=== PATIENT | female | born 1960 | race Two or more races ===

== ENCOUNTER → 2017-10-14 | Emergency (ER) | payer OTHER ==
[~2017-10-14] VITALS: Ht 157.5 cm; Wt 81.6 kg
[~2017-10-14] MED LIST: ANTIVERT25 MG ORAL; CIPRO500 MG PO; CLINDAMYCIN HC300 MG ORAL; NKM; PHENAZOPYRIDIN200 MG ORAL; Tylenol #3 tab (300mg/30mg) ORAL ONE; ZOFRAN ODT4 MG ORAL
[2017-10-14 15:30] VITALS: BP 151/87
--- NOTE | 2017-10-15 21:33 | Emergency Room Report ---
History of Present Illness General Chief Complaint: Chest Pain Source: Patient, Medical Record Present Illness HPI 57-year-old female presents ED complaining of chest pain started earlier today. Sharp, midsternal, radiating through the left shoulder. 8/10. Denies shortness of breath. Patient denies any history. Denies smoking or drug use. No other reading relieving factors. Denies any other associated symptom Allergies: Coded Allergies: No Known Allergies (Unverified , 07/19/15) Patient History Past Medical History: DM, HTN Past Surgical History: none Pertinent Family History: none Social History: Denies: smoking, alcohol use, drug use Last Menstrual Period: menopause Now: No Immunizations: UTD Reviewed Nursing Documentation: PMH: Agreed, PSxH: Agreed Nursing Documentation-PMH Past Medical History: No History, Except For Hx Hypertension: Yes Hx Asthma: No Hx COPD: No Hx Diabetes: Yes Review of Systems All Other Systems: negative except mentioned in HPI Physical Exam Vital Signs Date Time Temp Pulse Resp B/P (MAP) Pulse Ox O2 Delivery O2 Flow Rate FiO2 10/14/17 15:02 98.8 95 18 166/91 95 Room Air Sp02 EP Interpretation: reviewed, normal General Appearance: no apparent distress, alert, GCS 15, non-toxic Head: normocephalic, atraumatic Eyes: bilateral eye normal inspection, bilateral eye PERRL ENT: hearing grossly normal, normal pharynx, no angioedema, normal voice Neck: full range of motion, supple/symm/no masses Respiratory: lungs clear, normal breath sounds, speaking full sentences, other - reproducible chest wall tenderness Cardiovascular #1: regular rate, rhythm, no edema Cardiovascular #2: 2+ carotid (R), 2+ carotid (L), 2+ radial (R), 2+ radial (L) , 2+ dorsalis pedis (R), 2+ dorsalis pedis (L) Gastrointestinal: normal bowel sounds, non tender, soft, non-distended, no guarding, no rebound Rectal: deferred Genitourinary: normal inspection, no CVA tenderness Musculoskeletal: back normal, gait/station normal, normal range of motion, non- tender Neurologic: alert, oriented x3, responsive, motor strength/tone normal, sensory intact, speech normal Psychiatric: judgement/insight normal, memory normal, mood/affect normal, no suicidal/homicidal ideation Reflexes: 3+ bicep (R), 3+ bicep (L), 3+ tricep (R), 3+ tricep (L), 3+ knee (R) , 3+ knee (L) Skin: normal color, no rash, warm/dry, well hydrated Lymphatic: no adenopathy Medical Decision Making Diagnostic Impression: Primary Impression: Chest pain Qualified Codes: R07.9 - Chest pain, unspecified ER Course Hospital Course 57 yo F presents to ED c/o chest pain. 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 After initial history and physical I recommended to patient that we check bloodwork, EKG, CXR Patient asked how long will this take. I explained that routine laboratory testing will take approximately 90 minutes to hours however the hospital is currently running on back up generator abd laboratories currently down to the so may take longer Patient states she does not want to wait. asking for pain medications and be discharged. I explained to patient she feet she needs to leave AGAINST MEDICAL ADVICE given tylenol #3 in ED. Patient states she wishes to go home. Understands the risks of leaving. Patient has competency to make her own decisions. Signed AMA form. I. I feel this is a highly complex case requiring extensive working including EKG/Rhythm strip, Xray/CT/US, Blood/urine lab work, repeat exams while in ED, and administration of strong opiates/narcotics for pain control, admission to hospital or close patient follow up. Diagnosis - chest pain patient left AMA Last Vital Signs Date Time Temp Pulse Resp B/P (MAP) Pulse Ox O2 Delivery O2 Flow Rate FiO2 10/14/17 15:30 98.8 18 151/87 95 Room Air 10/14/17 15:30 95 Status: unchanged Disposition: AGAINST MEDICAL ADVICE Condition: Stable Referrals: [facility],REFERRING (PCP) MIO BURT M.D. Oct 15, 2017 21:33
--- NOTE | 2017-10-18 19:28 | Cardiology Report ---
APPROVED REPORT EKG Measurement Heart [id number] Normal sinus rhythm Low voltage QRS Cannot rule out Anterior infarct, age undetermined Abnormal ECG
== END | disposition home or self-care (01) ==
LOC: EMR 15:10
DX: R07.9 Chest pain, unspecified (principal); E11.9 Type 2 diabetes mellitus without complications; I10 Essential (primary) hypertension
CPT/HCPCS: 93005; 99282

== ENCOUNTER 2018-03-14 13:53 | Emergency (ER) | payer OTHER ==
[~2018-03-14] VITALS: Ht 157.5 cm; Wt 88.5 kg
[~2018-03-14 13:53] MED LIST changes: -Tylenol #3 tab (300mg/30mg) ORAL ONE
[2018-03-14] MEDS ORDERED: HYDROXYCHLOROQ200 M1 ORAL (14:03)
[2018-03-14] MEDS ORDERED: LEFLUNOMIDE10 MG ORAL (14:03)
[2018-03-14] MEDS ORDERED: BUSPAR10 MG ORAL (14:03)
[2018-03-14] MEDS ORDERED: FOLIC ACID1 M1 ORAL (14:03)
[2018-03-14] MEDS ORDERED: DOCUSATE SODIU100 MG ORAL (14:04)
[2018-03-14] MEDS ORDERED: ATORVASTATIN CA20 MG ORAL (14:04)
[2018-03-14 14:05] VITALS: BP 134/82
[2018-03-14] MEDS ORDERED: Ipratropium 0.02% Inh Soln 2.5ml UD HHN ONE (14:30)
[2018-03-14] MEDS ORDERED: Albuterol ud Inhalation HHN ONE (14:30)
--- NOTE | 2018-03-14 14:46 | Emergency Room Report ---
History of Present Illness General Chief Complaint: General Complaint Source: Patient Present Illness HPI 57-year-old female presents ED for evaluation. Patient states that she is complaining of congestion, stuffy nose and chest tightness 1 day. Denies any chest pain. Notes difficulty with deep breaths. History of asthma as a child. Denies fevers chills. Denies cough. History of lupus. Also going of dysuria 1 day. No flank pain. No nausea or vomiting. No other aggravating relieving factors. Denies any other associated symptoms Allergies: Coded Allergies: No Known Allergies (Unverified , 07/19/15) Patient History Past Medical History: DM, other - lupus Past Surgical History: none Pertinent Family History: none Social History: Denies: smoking, alcohol use, drug use Now: No Immunizations: UTD Reviewed Nursing Documentation: PMH: Agreed; PSxH: Agreed Nursing Documentation-PMH Past Medical History: No History, Except For Hx Hypertension: Yes - Fibromyalgia Hx Asthma: No Hx COPD: No Hx Diabetes: Yes Review of Systems All Other Systems: negative except mentioned in HPI Physical Exam Vital Signs Date Time Temp Pulse Resp B/P (MAP) Pulse Ox O2 Delivery O2 Flow Rate FiO2 03/14/18 13:56 98.2 91 16 129/82 96 Room Air 98.2 Sp02 EP Interpretation: reviewed, normal General Appearance: no apparent distress, alert, GCS 15, non-toxic Head: normocephalic, atraumatic Eyes: bilateral eye normal inspection, bilateral eye PERRL ENT: hearing grossly normal, normal pharynx, no angioedema, normal voice Neck: full range of motion, supple/symm/no masses Respiratory: chest non-tender, decreased breath sounds, speaking full sentences Cardiovascular #1: regular rate, rhythm, no edema, other - reproducible anterior chest wall pain Cardiovascular #2: 2+ carotid (R), 2+ carotid (L), 2+ radial (R), 2+ radial (L) , 2+ dorsalis pedis (R), 2+ dorsalis pedis (L) Gastrointestinal: normal bowel sounds, non tender, soft, non-distended, no guarding, no rebound Rectal: deferred Genitourinary: normal inspection, no CVA tenderness Musculoskeletal: back normal, gait/station normal, normal range of motion, non- tender Neurologic: alert, oriented x3, responsive, motor strength/tone normal, sensory intact, speech normal Psychiatric: judgement/insight normal, memory normal, mood/affect normal, no suicidal/homicidal ideation Reflexes: 3+ bicep (R), 3+ bicep (L), 3+ tricep (R), 3+ tricep (L), 3+ knee (R) , 3+ knee (L) Skin: normal color, no rash, warm/dry, well hydrated Lymphatic: no adenopathy Medical Decision Making Diagnostic Impression: Primary Impression: Bronchitis ER Course Hospital Course 57-year-old female presents to ED complaining of SOB, congestion. Differential diagnoses include: URI, bronchitis, asthma/COPD, pneumonia Clinical course Patient placed on stretcher. After initial history and physical I ordered prednisone and nebulizer treatment. CXR no acute process Upon reassessment patient states symptoms have improved. Findings consistent with bronchitis. patient states she is unable to provide a urine sample. say she does not want to wait Diagnosis - bronchitis Stable and discharged home with prescriptions for Rx prednisone, albuterol. Instructed to followup with PMD. Return to ED if symptoms recur or worsen Chest X-Ray Diagnostic Results Chest X-Ray Diagnostic Results : Chest X-Ray Ordered: Yes # of Views/Limited/Complete: 1 View Indication: Chest Pain EP Interpretation: Yes Interpretation: no consolidation, no effusion, no pneumothorax, no acute cardiopulmonary disease Impression: No acute disease Electronically Signed by: Electronically signed by Nate Barton MD Last Vital Signs Date Time Temp Pulse Resp B/P (MAP) Pulse Ox O2 Delivery O2 Flow Rate FiO2 03/14/18 13:56 98.2 91 16 129/82 96 Room Air 98.2 Status: improved Disposition: HOME, SELF-CARE Condition: Stable Scripts Albuterol Sulfate* (ALBUTEROL SULFATE MDI*) 8.5 Gm Hfa.aer.ad 2 PUFF INH Q6H, #1 EA 0 Refills Prov: Nate Barton MD 03/14/18 Prednisone* (PREDNISONE*) 20 Mg Tablet 60 MG ORAL DAILY, #15 TAB Prov: Nate Barton MD 03/14/18 Referrals: [facility],REFERRING (PCP) Nate Barton MD March 14, 2018 14:46
[2018-03-14] MEDS ORDERED: PREDNISONE20 MG ORAL (15:10)
[2018-03-14] MEDS ORDERED: ALBUTEROL SULF8.5 GM INH (15:10)
[2018-03-14 15:22] VITALS: BP 138/89
[2018-03-14 15:44] LABS: APPEARANCE,URINE CLEAR; BILIRUBIN, URINE NEGATIVE (NEGATIVE); COLOR,URINE PALE YELLOW; GLUCOSE, URINE (UA) NEGATIVE (NEGATIVE); KETONES,URINE NEGATIVE (NEGATIVE); LEUKOCYTE ESTERASE ,URINE 1+ (NEGATIVE); NITRITE,URINE NEGATIVE (NEGATIVE); PH,URINE 5 (4.5-8.0); PROTEIN,URINE NEGATIVE (NEGATIVE); UROBILINOGEN,URINE NORMAL MG/DL (0.0-1.0)
--- NOTE | 2018-03-14 16:04 | Diagnostic Imaging Report ---
Indication: Dyspnea Comparison: None A single view chest radiograph was obtained. Findings: Cardiomediastinal appearance is within normal limits for age. Pulmonary vascularity is appropriate. The diaphragmatic contour is smooth and costophrenic angles are sharp. No pleural effusions are identified. The bones are unremarkable. Impression: No acute findings
== END 2018-03-14 16:16 | disposition home or self-care (01) ==
LOC: EMR 14:20
DX: J40 Bronchitis, not specified as acute or chronic (principal); E11.9 Type 2 diabetes mellitus without complications; I10 Essential (primary) hypertension; M79.7 Fibromyalgia
CPT/HCPCS: 71045; 81003; 94640; 94664; 99284

== ENCOUNTER 2018-05-15 20:12 | Emergency (ER) | payer OTHER ==
[~2018-05-15] VITALS: Ht 157.5 cm; Wt 88.5 kg
[~2018-05-15 20:12] MED LIST changes: +ALBUTEROL SULF8.5 GM INH; +ATORVASTATIN CA20 MG ORAL; +BUSPAR10 MG ORAL; +DOCUSATE SODIU100 MG ORAL; +FOLIC ACID1 M1 ORAL; +HYDROXYCHLOROQ200 M1 ORAL; +LEFLUNOMIDE10 MG ORAL; +PREDNISONE20 MG ORAL
--- NOTE | 2018-05-15 20:38 | Emergency Room Report ---
History of Present Illness General Chief Complaint: Chest Pain Source: Patient Present Illness HPI Patient present with complaints of midsternal chest pain that started few hours ago She reports that she was having an argument with family when the pain came on She has started to feel better at this time Denies any current chest pain Denies any vomiting or diarrhea denies any shortness of breath Patient reports that she thinks she was having anxiety And requesting medication Denies any recent travel denies any dysuria frequency Allergies: Coded Allergies: No Known Allergies (Unverified , 07/19/15) Patient History Past Medical History: see triage record Pertinent Family History: none Last Menstrual Period: n/a Reviewed Nursing Documentation: PMH: Agreed; PSxH: Agreed Nursing Documentation-PMH Past Medical History: No History, Except For Hx Hypertension: Yes - Fibromyalgia Hx Asthma: No Hx COPD: No Hx Diabetes: Yes Review of Systems All Other Systems: negative except mentioned in HPI Physical Exam Vital Signs Date Time Temp Pulse Resp B/P (MAP) Pulse Ox O2 Delivery O2 Flow Rate FiO2 05/15/18 20:15 98.5 99 16 142/88 98 Room Air 98.4 Sp02 EP Interpretation: reviewed, normal General Appearance: well appearing, no apparent distress Head: normocephalic, atraumatic Eyes: bilateral eye PERRL, bilateral eye EOMI ENT: hearing grossly normal, normal pharynx, TMs + canals normal, uvula midline Neck: full range of motion, supple, no meningismus, no bony tend Respiratory: lungs clear, normal breath sounds, no rhonchi, no respiratory distress, no retraction, no accessory muscle use Cardiovascular #1: normal peripheral pulses, regular rate, rhythm, no edema, no gallop, no JVD, no murmur Gastrointestinal: normal bowel sounds, non tender, soft, no mass, no organomegaly, non-distended, no guarding, no hernia, no pulsatile mass, no rebound Genitourinary: no CVA tenderness Musculoskeletal: normal inspection Neurologic: oriented x3, 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, 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, motor strength/ tone normal, sensory intact Psychiatric: mood/affect normal Skin: normal color, no rash, warm/dry, palpation normal Lymphatic: normal inspection, no adenopathy Medical Decision Making Diagnostic Impression: Primary Impression: Chest pain Additional Impression: Palpitations ER Course Patient is a fairly complex patient with multiple differential to consideration including but not limited to cardiac cardiopulmonary and vascular emergencies Patient continues to produce her discomfort specifically to the acute moment of argument and reports that she feels significantly better Patient observed EKG is appropriate and does not show any ST elevation CO As the patient has had full resolution further examination was not performed on blood work and patient stable for close follow-up she will return with any changes or concerns EKG Diagnostic Results Rate: normal Rhythm: NSR ST Segments: no acute changes Rhythm Strip Diag. Results EP Interpretation: yes Rate: 77 Rhythm: NSR, no PVC's, no ectopy Last Vital Signs Date Time Temp Pulse Resp B/P (MAP) Pulse Ox O2 Delivery O2 Flow Rate FiO2 05/15/18 20:15 98.5 99 16 142/88 98 Room Air 98.4 Status: improved Disposition: HOME, SELF-CARE Condition: Improved Additional Instructions: Patient is provided with the discharge instructions notified to follow up with primary doctor in the next 2-3 days otherwise return to the er with any worsening symptoms. Please note that this report is being documented using [employer] technology. This can lead to erroneous entry secondary to incorrect interpretation by the dictating instrument. Catherine Griffin DO May 15, 2018 20:38
[2018-05-15] MEDS ORDERED: ALPRAZolam 0.25mg tab ORAL ONE (20:45)
[2018-05-15 21:00] VITALS: BP 148/76
[2018-05-15 21:06] VITALS: BP 148/76
--- NOTE | 2018-05-16 14:54 | Cardiology Report ---
APPROVED REPORT EKG Measurement Heart [id number] Normal sinus rhythm Normal ECG
== END 2018-05-15 21:06 | disposition home or self-care (01) ==
LOC: EMR 20:54
DX: R07.9 Chest pain, unspecified (principal); R00.2 Palpitations; E11.9 Type 2 diabetes mellitus without complications; I10 Essential (primary) hypertension; M79.7 Fibromyalgia
CPT/HCPCS: 93005; 99283

== ENCOUNTER 2019-01-03 15:40 | Emergency (ER) | payer OTHER ==
[~2019-01-03] VITALS: Ht 157.5 cm; Wt 86.2 kg
[2019-01-03 15:43] VITALS: BP 131/86
--- NOTE | 2019-01-03 17:06 | NUR ---
ED Nurse Note: Patient presents to ER due to persistent, painful cough since last week; reports no CP, dyspnea or SOB. Patient awake, alert, oriented x 4. Regular unlaobred breathing noted. Reports no N/V or diaphoresis. Mask provided. Patient sitting in chair.
--- NOTE | 2019-01-03 17:26 | Emergency Room Report ---
History of Present Illness General Chief Complaint: Upper Respiratory Illness Source: Patient Present Illness HPI 58-year-old female presents emergency department complaining of 6/10 in severity painful persistent cough with mucus production 2 weeks. She is also reporting some pain in the upper back area that is exacerbated with coughing, and relieved when not. Pt. with hx of lupus and fibromyalgia. Denies fevers, chills, recent travel or ill contacts. Denies cardiac hx, or swelling of the LE' s. Denies CP, Palpitations, LOC, AMS, dizziness, Changes in Vision, Sensation, paresthesias, or a sudden severe headache. Allergies: Coded Allergies: No Known Allergies (Unverified , 07/19/15) Patient History Past Medical History: see triage record Past Surgical History: none Pertinent Family History: none Last Menstrual Period: na Now: No Immunizations: UTD Reviewed Nursing Documentation: PMH: Agreed; PSxH: Agreed Nursing Documentation-PMH Past Medical History: No History, Except For Hx Hypertension: Yes - Fibromyalgia Hx Asthma: No Hx COPD: No Hx Diabetes: Yes Review of Systems All Other Systems: negative except mentioned in HPI Physical Exam Vital Signs Date Time Temp Pulse Resp B/P (MAP) Pulse Ox O2 Delivery O2 Flow Rate FiO2 01/03/19 15:43 98.2 96 18 131/86 96 Room Air Sp02 EP Interpretation: reviewed, normal General Appearance: no apparent distress, alert, GCS 15, non-toxic Head: normocephalic, atraumatic Eyes: bilateral eye normal inspection, bilateral eye PERRL ENT: hearing grossly normal, normal voice Neck: full range of motion, no meningismus Respiratory: chest non-tender, lungs clear, normal breath sounds, no respiratory distress, no accessory muscle use, no wheezing, speaking full sentences Cardiovascular #1: regular rate, rhythm, no edema, normal capillary refill Cardiovascular #2: 0 carotid (R), 0 carotid (L), 0 radial (R), 0 radial (L), 0 femoral (R), 0 femoral (L), 0 dorsalis pedis (R), 0 dorsalis pedis (L) Musculoskeletal: back normal, gait/station normal, normal range of motion, non- tender Neurologic: alert, oriented x3, responsive, motor strength/tone normal, sensory intact, speech normal, grossly normal Psychiatric: judgement/insight normal Skin: normal color, no rash, warm/dry, well hydrated Lymphatic: no adenopathy Medical Decision Making PA Attestation Dr. gutierrez is my supervising Physician whom patient management has been discussed with. Diagnostic Impression: Primary Impression: Viral upper respiratory infection ER Course 58-year-old female presents emergency department complaining of 6/10 in severity painful persistent cough with mucus production 2 weeks. She is also reporting some pain in the upper back area that is exacerbated with coughing, and relieved when not. Pt. with hx of lupus and fibromyalgia. Denies fevers, chills, recent travel or ill contacts. Denies cardiac hx, or swelling of the LE' s. Denies CP, Palpitations, LOC, AMS, dizziness, Changes in Vision, Sensation, paresthesias, or a sudden severe headache. Ddx considered but are not limited to URI, pneumonia, PE, strep pharyngitis, meningitis. Vital signs: Pt. is afebrile, the remaining VS are WNL H&PE are most consistent with URI- no meningeal signs, oropharynx is not involved, no evidence of bacterial infection at this time. ORDERS: none required at this time, the diagnosis is clinical ED INTERVENTIONS: None required at this time. --PT. EDUCATION: Discussed antibiotic resistance with inappropriate prescribing of antibiotics for viral illnesses. Discussed signs and symptoms to indicate viral illness versus bacterial illness. DISCHARGE: At this time pt. is stable for d/c to home. Will provide printed patient care instructions, and any necessary prescriptions. Care plan and follow up instructions have been discussed with the patient prior to discharge. EKG Diagnostic Results EP Interpretation: Dr. Barton Rate: normal - 89 bpm Rhythm: NSR ST Segments: no acute changes DELMIS Scribe Text This Interpretation was scribed by DELMIS Hutchinson. Chest X-Ray Diagnostic Results Chest X-Ray Diagnostic Results : Chest X-Ray Ordered: Yes # of Views/Limited/Complete: 1 View Indication: Shortness of Breath EP Interpretation: Yes DELMIS Xray: Interpretation reviewed, by supervising MD, and agrees with findings. Interpretation: no consolidation, no effusion, no pneumothorax, no acute cardiopulmonary disease Impression: No acute disease Electronically Signed by: Fidelina Hutchinson PA-C Last Vital Signs Date Time Temp Pulse Resp B/P (MAP) Pulse Ox O2 Delivery O2 Flow Rate FiO2 01/03/19 17:05 96 18 Room Air 01/03/19 15:43 98.2 131/86 96 Disposition: HOME, SELF-CARE Condition: Stable Scripts Albuterol Sulfate* (ALBUTEROL SULFATE MDI*) 8.5 Gm Hfa.aer.ad 2 PUFF INH Q4H, #1 INH 0 Refills Prov: Fidelina Hutchinson 01/03/19 Cetirizine Hcl/Pseudoephedrine (ZYRTEC-D TABLET) 1 Each Tab.er.12h 1 EACH ORAL Q12HR, #20 TAB Prov: Fidelina Hutchinson 01/03/19 Codeine/Promethazine Hcl* (PROMETHAZINE-CODEINE SYRUP*) 118 Ml Syrup 5 ML ORAL Q6H PRN for For Cough, #120 ML 0 Refills Prov: Fidelina Hutchinson 01/03/19 Referrals: [facility],REFERRING (PCP) Patient Instructions: Upper Respiratory Infection, Adult Additional Instructions: Take medications as directed. Follow up with a Primary Care Provider in 3-5 days, even if your symptoms have resolved. --Please review list of primary care clinics, if you do not already have a primary care provider Return sooner to ED if new symptoms occur, or current symptoms become worse. Do not drink alcohol, drive, or operate heavy machinery while taking Cough Syrup as this may cause drowsiness. - Please note that this Emergency Department Report was dictated using [employer] assistant technology software, occasionally this can lead to erroneous entry secondary to interpretation by the dictation equipment. Fidelina Hutchinson Jan 03, 2019 17:26
[2019-01-03] MEDS ORDERED: ALBUTEROL SULF8.5 GM INH (17:28)
[2019-01-03] MEDS ORDERED: PROMETHAZINE-C118 M1 ORAL (17:28)
[2019-01-03] MEDS ORDERED: ZYRTEC-D TABLE1 EACH ORAL (17:28)
[2019-01-03 17:30] VITALS: BP 121/81
--- NOTE | 2019-01-03 17:30 | NUR ---
ED Nurse Note: Patient cleared to be d/c per ERMD. D/C instruction and prescription provided. Patient education done via discussion and handout, Patient verbalized understanding and agrees with plan. Patient ambulated out steady gait with her belongings. Wristband removed.
--- NOTE | 2019-01-04 12:07 | Diagnostic Imaging Report ---
Indication: Cough for a month Technique: One view of the chest Comparison: 03/14/2018 Findings: Lungs and pleural spaces are clear. Heart size is normal . No significant interim change Impression: No acute process
--- NOTE | 2019-01-05 20:23 | Cardiology Report ---
APPROVED REPORT EKG Measurement Heart [id number] Normal sinus rhythm Low voltage QRS Borderline ECG
== END 2019-01-03 17:30 | disposition home or self-care (01) ==
LOC: EMR 16:20
DX: J06.9 Acute upper respiratory infection, unspecified (principal); B34.9 Viral infection, unspecified; I10 Essential (primary) hypertension; E11.9 Type 2 diabetes mellitus without complications; M79.7 Fibromyalgia
CPT/HCPCS: 71045; 93005; 99283

== ENCOUNTER 2019-03-18 17:36 | Emergency (ER) | payer OTHER ==
[~2019-03-18] VITALS: Ht 157.5 cm; Wt 86.2 kg
[~2019-03-18 17:36] MED LIST changes: +PROMETHAZINE-C118 M1 ORAL; +ZYRTEC-D TABLE1 EACH ORAL
--- NOTE | 2019-03-18 18:35 | NUR ---
ED Nurse Note: RECEIVED PT FROM DRIVER/[facility]. PT CAME IN DUE TO LEFT SIDE CP SINCE LAST NIGHT. PT STATES LIKE ''SOMEONE SITTING ON IT''. DENIES VOMITING BUT FEELS NAUSEATED. PT IS AAO X4, AMBULATORY WITH NON LABORED BREATHING.
--- NOTE | 2019-03-18 18:45 | NUR ---
ED Nurse Note: COLLECTED BLOOD/URINE THEN SENT.
[2019-03-18 19:10] VITALS: BP 145/89
[2019-03-18 19:13] LABS: APPEARANCE,URINE CLEAR; BILIRUBIN, URINE NEGATIVE (NEGATIVE); COLOR,URINE PALE YELLOW; GLUCOSE, URINE (UA) NEGATIVE (NEGATIVE); KETONES,URINE NEGATIVE (NEGATIVE); LEUKOCYTE ESTERASE ,URINE 1+ (NEGATIVE); NITRITE,URINE NEGATIVE (NEGATIVE); PH,URINE 6 (4.5-8.0); PROTEIN,URINE 1+ (NEGATIVE); UROBILINOGEN,URINE NORMAL MG/DL (0.0-1.0)
[2019-03-18 19:26] LABS: BASOPHILS % (AUTO) 1.2 % (0.0-2.0); EOSINOPHILS % (AUTO) 1.7 % (0.0-3.0); HEMATOCRIT 39.8 % (37.0-47.0); HEMOGLOBIN 13.9 G/DL (12.0-16.0); LYMPHOCYTES % (AUTO) 22.1 % (20.0-45.0); MEAN CORPUSCULAR VOLUME 83 FL (80-99); MONOCYTES % (AUTO) 5.5 % (1.0-10.0); NEUTROPHILS % (AUTO) 69.5 % (45.0-75.0); PLATELET COUNT 346 K/UL (150-450); RED CELL DISTRIBUTION WIDTH 11.7 % (11.6-14.8)
[2019-03-18 19:29] LABS: ANION GAP 10 mmol/L (5-15); BLOOD UREA NITROGEN 10 mg/dL (7-18); CALCIUM 9.4 MG/DL (8.5-10.1); CARBON DIOXIDE 26 MMOL/L (21-32); CHLORIDE 106 MMOL/L (98-107); CREATININE 1.2 MG/DL (0.55-1.30); POTASSIUM 3.7 MMOL/L (3.5-5.1); SODIUM 141 MMOL/L (136-145)
[2019-03-18 19:34] LABS: ALANINE AMINOTRANSFERASE 19 U/L (12-78); ALBUMIN 3.8 G/DL (3.4-5.0); ALKALINE PHOSPHATASE 95 U/L (46-116); ASPARTATE AMINO TRANSFERASE 7 U/L (15-37); BILIRUBIN,TOTAL 0.1 MG/DL (0.2-1.0)
--- NOTE | 2019-03-18 20:31 | Emergency Room Report ---
History of Present Illness General Chief Complaint: Chest Pain Source: Patient (Addis Pimentel) Present Illness HPI 58-year-old female with history of hypertension currently controlled with blood pressure medication here complaining of 2 days of chest pressure that initially started after coughing blood-tinged phlegm 2 days ago and now feels tingling in left arm. Patient rating the chest pressure 5 out of 10 with radiation, denying numbness has taken ibuprofen with minimal relief. Patient also complains of dizziness and headache that is associated with the chest pressure also feels anxiety as she is worried that there is something wrong with her heart. Patient denies any history of heart related issues, and has been compliant with taking her blood pressure medication. Denies abdominal pain, nausea vomiting, blurred vision, fatigue, and other associated symptoms. (Addis Pimentel) Allergies: Coded Allergies: No Known Allergies (Unverified , 03/18/19) Patient History Past Medical History: see triage record Past Surgical History: unable to obtain Pertinent Family History: none Now: No Reviewed Nursing Documentation: PMH: Agreed; PSxH: Agreed (Addis Pimentel) Nursing Documentation-PMH Past Medical History: No History, Except For Hx Hypertension: Yes - Fibromyalgia Hx Asthma: No Hx COPD: No Hx Diabetes: Yes (Addis Pimentel) Review of Systems All Other Systems: negative except mentioned in HPI (Addis Pimentel) Physical Exam Vital Signs Date Time Temp Pulse Resp B/P (MAP) Pulse Ox O2 Delivery O2 Flow Rate FiO2 03/18/19 17:46 98.2 110 19 149/92 (111) 96 Room Air Sp02 EP Interpretation: reviewed, normal General Appearance: normal inspection, well appearing, no apparent distress, alert, GCS 15, non-toxic Head: normocephalic, atraumatic Eyes: bilateral eye normal inspection, bilateral eye PERRL ENT: normal ENT inspection, hearing grossly normal, normal pharynx, no angioedema Neck: normal inspection, full range of motion, supple, thyroid normal, no carotid bruits Respiratory: normal inspection, chest non-tender, lungs clear, no rhonchi, no retraction, no wheezing Cardiovascular #1: normal inspection, normal peripheral pulses, regular rate, rhythm, no edema, no murmur, normal capillary refill Cardiovascular #2: 2+ carotid (R), 2+ carotid (L) Gastrointestinal: normal inspection, non tender, soft Rectal: deferred Genitourinary: no CVA tenderness Musculoskeletal: normal inspection, back normal, digits/nails normal Neurologic: normal inspection, alert, oriented x3 Psychiatric: normal inspection, judgement/insight normal Skin: normal inspection, normal color, no rash, warm/dry Lymphatic: normal inspection, no adenopathy (Addis Pimentel) Medical Decision Making PA Attestation All diagnoses and treatment plans were reviewed and discussed with my supervising physician (Addis Pimentel) Diagnostic Impression: Primary Impression: Pharyngitis Additional Impressions: Chest pain Tension headache ER Course 58-year-old female with history of hypertension currently controlled with blood pressure medication here complaining of 2 days of chest pressure that initially started after coughing blood-tinged phlegm 2 days ago and now feels tingling in left arm. Patient rating the chest pressure 5 out of 10 with radiation, denying numbness has taken ibuprofen with minimal relief. Patient also complains of dizziness and headache that is associated with the chest pressure also feels anxiety as she is worried that there is something wrong with her heart. Patient denies any history of heart related issues, and has been compliant with taking her blood pressure medication. Denies abdominal pain, nausea vomiting, blurred vision, fatigue, and other associated symptoms. Ddx considered but are not limited to [place], PNA, bronchitis, pharyngitis, tension headache anxiety Vital signs: are WNL, pt. is afebrile H&PE are most consistent with chest pain unspecified, pharyngitis, tension headache ORDERS: EKG, chest x-ray, CBC, CMP, UA, Tessalon Perles, amoxicillin ED INTERVENTIONS: None required at this time. DISCHARGE: At this time pt. is stable for d/c to home. Will provide printed patient care instructions, and any necessary prescriptions. Care plan and follow up instructions have been discussed with the patient prior to discharge. Follow-up with her primary care provider if symptoms continue no heart related issue noted manage her anxiety when you see your primary doctor (Addis Pimentel) Labs Test 03/18/19 18:40 White Blood Count 10.0 K/UL (4.8-10.8) Red Blood Count 4.80 M/UL (4.20-5.40) Hemoglobin 13.9 G/DL (12.0-16.0) Hematocrit 39.8 % (37.0-47.0) Mean Corpuscular Volume 83 FL (80-99) Mean Corpuscular Hemoglobin 28.9 PG (27.0-31.0) Mean Corpuscular Hemoglobin Concent 34.9 G/DL (32.0-36.0) Red Cell Distribution Width 11.7 % (11.6-14.8) Platelet Count 346 K/UL (150-450) Mean Platelet Volume 6.2 FL (6.5-10.1) Neutrophils (%) (Auto) 69.5 % (45.0-75.0) Lymphocytes (%) (Auto) 22.1 % (20.0-45.0) Monocytes (%) (Auto) 5.5 % (1.0-10.0) Eosinophils (%) (Auto) 1.7 % (0.0-3.0) Basophils (%) (Auto) 1.2 % (0.0-2.0) Urine Color Pale yellow Urine Appearance Clear Urine pH 6 (4.5-8.0) Urine Specific [place] 1.010 (1.005-1.035) Urine Protein 1+ (NEGATIVE) Urine Glucose (UA) Negative (NEGATIVE) Urine Ketones Negative (NEGATIVE) Urine Blood 1+ (NEGATIVE) Urine Nitrite Negative (NEGATIVE) Urine Bilirubin Negative (NEGATIVE) Urine Urobilinogen Normal MG/DL (0.0-1.0) Urine Leukocyte Esterase 1+ (NEGATIVE) Urine RBC 5-10 /HPF (0 - 2) Urine WBC 2-4 /HPF (0 - 2) Urine Squamous Epithelial Cells Few /LPF (NONE/OCC) Urine Bacteria Moderate /HPF (NONE) Sodium Level 141 MMOL/L (136-145) Potassium Level 3.7 MMOL/L (3.5-5.1) Chloride Level 106 MMOL/L (98-107) Carbon Dioxide Level 26 MMOL/L (21-32) Anion Gap 10 mmol/L (5-15) Blood Urea Nitrogen 10 mg/dL (7-18) Creatinine 1.2 MG/DL (0.55-1.30) Estimat Glomerular Filtration Rate 45.9 mL/min (>60) Glucose Level 126 MG/DL (74-106) Calcium Level 9.4 MG/DL (8.5-10.1) Total Bilirubin 0.1 MG/DL (0.2-1.0) Aspartate Amino Transf (AST/SGOT) 7 U/L (15-37) Alanine Aminotransferase (ALT/SGPT) 19 U/L (12-78) Alkaline Phosphatase 95 U/L (46-116) Troponin I 0.000 ng/mL (0.000-0.056) Total Protein 7.5 G/DL (6.4-8.2) Albumin 3.8 G/DL (3.4-5.0) Globulin 3.7 g/dL Albumin/Globulin Ratio 1.0 (1.0-2.7) (Chaitanya Bryant MD) EKG Diagnostic Results Rate: normal Rhythm: NSR ST Segments: no acute changes (Addis Pimentel) Chest X-Ray Diagnostic Results Chest X-Ray Diagnostic Results : Chest X-Ray Ordered: Yes Indication: Chest Pain EP Interpretation: Yes PA Xray: Interpretation reviewed, by supervising MD, and agrees with findings. Interpretation: no consolidation, no effusion, no pneumothorax Impression: No acute disease Electronically Signed by: addis mora PA-C (Addis Pimentel) Chest X-Ray Diagnostic Results : Electronically Signed by: DELMIS documentation reviewed by me and is accurate, Chaitanya Bryant MD (Chaitanya Bryant MD) Last Vital Signs Date Time Temp Pulse Resp B/P (MAP) Pulse Ox O2 Delivery O2 Flow Rate FiO2 03/18/19 17:46 98.2 110 19 149/92 (111) 96 Room Air (Addis Pimentel) Disposition: HOME, SELF-CARE Condition: Stable Scripts Ibuprofen (IBUPROFEN) 200 Mg Capsule 200 MG ORAL FOUR TIMES A DAY, #30 CAP 0 Refills Prov: Addis Pimentel 03/18/19 Benzonatate* (TESSALON PERLE*) 100 Mg Capsule 100 MG ORAL THREE TIMES A DAY, #20 PERLE Prov: Addis Pimentel 03/18/19 Amoxicillin* (AMOXIL*) 500 Mg Capsule 500 MG ORAL EVERY 12 HOURS for 10 Days, #20 CAP Prov: Addis Pimentel 03/18/19 Patient Instructions: Nonspecific Chest Pain, Pharyngitis, [id number] Additional Instructions: Along with a primary care provider if symptoms continue headache and dizziness secondary to anxiety and coughing Addis Pimentel Mar 18, 2019 20:31 Chaitanya Bryant MD Mar 21, 2019 07:18
[2019-03-18] MEDS ORDERED: AMOXICILLIN500 MG ORAL (20:33)
[2019-03-18] MEDS ORDERED: IBUPROFEN200 M2 ORAL (20:33)
[2019-03-18] MEDS ORDERED: TESSALON PERLE100 MG ORAL (20:33)
[2019-03-18 20:48] VITALS: BP 145/89
--- NOTE | 2019-03-18 20:50 | NUR ---
ER DISCHARGE NOTE: Patient is cleared to be discharged per ERMD, pt is aox4, on room air, with stable vital signs. pt was given dc and prescription instructions, pt was able to verbalize understanding, pt id band and iv site removed without complications. pt is able to ambulate with steady gait. pt took all belongings.
--- NOTE | 2019-03-19 12:42 | Diagnostic Imaging Report ---
Indication: Chest pain Technique: One view of the chest Comparison: 01/03/2019 Findings: Lungs and pleural spaces are clear. Heart size is normal. Surgical clips project over the left lower chest and in the right upper quadrant. Findings are unchanged Impression: No acute process
--- NOTE | 2019-03-22 17:48 | Cardiology Report ---
APPROVED REPORT EKG Measurement Heart [id number] Normal sinus rhythm Low voltage QRS Borderline ECG
== END 2019-03-18 20:40 | disposition home or self-care (01) ==
LOC: EMR 18:25
DX: J02.9 Acute pharyngitis, unspecified (principal); R07.9 Chest pain, unspecified; G44.209 Tension-type headache, unspecified, not intractable; E11.9 Type 2 diabetes mellitus without complications; I10 Essential (primary) hypertension; M79.7 Fibromyalgia
CPT/HCPCS: 36415; 71045; 80053; 81001; 84484; 85025; 87086; 87181; 93005; 99283

== ENCOUNTER 2019-06-24 12:18 | Emergency (ER) | payer OTHER ==
[~2019-06-24] VITALS: Ht 157.5 cm; Wt 88.0 kg
[~2019-06-24 12:18] MED LIST changes: +AMOXICILLIN500 MG ORAL; +IBUPROFEN200 M2 ORAL; +TESSALON PERLE100 MG ORAL
--- NOTE | 2019-06-24 12:30 | NUR ---
ED Nurse Note: Patient walked in to ER from home due to Rt lower back and flank pain and chest tightness 10/10 started since last night. pt aao x4 and ambulatory. skin clean and intact. cooperative but restless due to severe pain. pt is in gown and on playground monitor. no acute distress noted at this time. high bp as documented notified to ERPA.
--- NOTE | 2019-06-24 12:38 | NUR ---
ED Nurse Note: x-ray at bedside.
[2019-06-24 12:46] VITALS: BP 182/98
--- NOTE | 2019-06-24 12:46 | Emergency Room Report ---
History of Present Illness General Chief Complaint: Chest Pain Source: Patient Present Illness HPI 59 YO Female presents to the ED C/o / in severity LBP and lower abdominal pain in addition to 3/10 in severity pressure like CP. Pt. reports some dysuria , denies urinary frequency, urgency or incontinence. She reports last night her LBP radiated down to her right calf. She denies trauma or fall. Denies previous back injury. Denies hematuria. Denies cardiac hx. Reports hx of Lupus and HTN. Pt. reports that she did not take any of her medication today because she wasn' t sure if it was ok to do so. She denies nausea, vomiting, fevers, chills, recent travel or ill contacts with similar symptoms. Patient denies SOB, palpitations, dizziness, syncope or altered mental status. Allergies: Coded Allergies: No Known Allergies (Unverified , 03/18/19) Patient History Past Medical History: see triage record Past Surgical History: none Pertinent Family History: none Last Menstrual Period: menopause Reviewed Nursing Documentation: PMH: Agreed; PSxH: Agreed Nursing Documentation-PMH Past Medical History: No History, Except For Hx Hypertension: Yes - Fibromyalgia Hx Asthma: No Hx COPD: No Hx Diabetes: Yes Review of Systems All Other Systems: negative except mentioned in HPI Physical Exam Vital Signs Date Time Temp Pulse Resp B/P (MAP) Pulse Ox O2 Delivery O2 Flow Rate FiO2 06/24/19 12:28 98.2 87 18 179/96 (123) 97 Room Air Sp02 EP Interpretation: reviewed, normal General Appearance: alert, GCS 15, non-toxic, mild distress Head: normocephalic, atraumatic Eyes: bilateral eye normal inspection, bilateral eye PERRL ENT: hearing grossly normal, normal voice Neck: full range of motion Respiratory: chest non-tender, lungs clear, normal breath sounds, no rhonchi, no respiratory distress, no accessory muscle use, no wheezing, speaking full sentences Cardiovascular #1: regular rate, rhythm, no edema, normal capillary refill Gastrointestinal: normal bowel sounds, soft, tenderness - TTP to the midline lower abdomen. Rectal: deferred Genitourinary: normal inspection, CVA tenderness (R), CVA tenderness (L) Musculoskeletal: back normal, gait/station normal, normal range of motion, tender - TTP to the paraspinal musculature of the L-Spine area bilaterally, no midline ttp. Neurologic: alert, oriented x3, responsive, motor strength/tone normal, sensory intact, speech normal, grossly normal Psychiatric: judgement/insight normal Skin: no rash Medical Decision Making PA Attestation Dr. Lawrence Is my supervising Physician whom patient management has been discussed with. Diagnostic Impression: Primary Impression: Pyelonephritis ER Course 59 YO Female presents to the ED C/o 06/25 in severity pressure like CP, LBP, and lower abdominal pain. Pt. reports some dysuria, denies urinary frequency, urgency or incontinence. She reports last night her LBP radiated down to her right calf. She denies trauma or fall. Denies previous back injury. Denies hematuria. Denies cardiac hx. Reports hx of Lupus and HTN. Pt. reports that she did not take any of her medication today because she wasn't sure if it was ok to do so. She denies nausea, vomiting, fevers, chills, recent travel or ill contacts with similar symptoms. Patient denies palpitations, dizziness, syncope or altered mental status. Ddx considered but are not limited to [place], pneumonia, contusion, costochondritis , PE, ACS, Shoulder strain, Chest wall contusion. aortic dissection, UTI, GE, appendicitis, gallbladder etiology, pancreatitis just to name a few. Vital signs: are WNL, pt. is afebrile H&PE are most consistent with possible UTI or renal stone, symptoms are primarily abdominal and low back pain. Pt. is NAD, non-toxic in appearance. ORDERS: - EK NSR BPM -CBC: WBC's 13.4 -CMP: WNL -Troponin:0.032 WNL -CK: WNL - Lipase: WNL CXR: Unremarkable -UA: Nitrite positive moderate bacteria and elevated inflammatory markers indicating UTI ED INTERVENTIONS: - PT. placed on cardiac monitoring. -4mg Morphine IV - Rocephin 1G IV laboratory results highly correspond to where the pt. is experiencing pain, and suggest renal involvement. -I do not identify an emergent condition at this time. With current presentation , pt. is stable for close outpatient follow up and conservative treatment. D/ w pt. to return promptly to ED with worsening or new symptoms.- Pt. verbalizes' understanding and agreement with proposed treatment plan.proposed treatment plan. DISCHARGE: At this time pt. is stable for d/c to home. Will provide printed patient care instructions, and any necessary prescriptions. Care plan and follow up instructions have been discussed with the patient prior to discharge. Labs Test 06/24/19 12:40 06/24/19 12:51 White Blood Count 13.8 K/UL (4.8-10.8) Red Blood Count 5.28 M/UL (4.20-5.40) Hemoglobin 15.2 G/DL (12.0-16.0) Hematocrit 45.7 % (37.0-47.0) Mean Corpuscular Volume 87 FL (80-99) Mean Corpuscular Hemoglobin 28.8 PG (27.0-31.0) Mean Corpuscular Hemoglobin Concent 33.2 G/DL (32.0-36.0) Red Cell Distribution Width 11.7 % (11.6-14.8) Platelet Count 417 K/UL (150-450) Mean Platelet Volume 6.3 FL (6.5-10.1) Neutrophils (%) (Auto) 69.6 % (45.0-75.0) Lymphocytes (%) (Auto) 22.4 % (20.0-45.0) Monocytes (%) (Auto) 6.6 % (1.0-10.0) Eosinophils (%) (Auto) 0.9 % (0.0-3.0) Basophils (%) (Auto) 0.6 % (0.0-2.0) Sodium Level 141 MMOL/L (136-145) Potassium Level 3.4 MMOL/L (3.5-5.1) Chloride Level 102 MMOL/L (98-107) Carbon Dioxide Level 30 MMOL/L (21-32) Anion Gap 9 mmol/L (5-15) Blood Urea Nitrogen 6 mg/dL (7-18) Creatinine 0.9 MG/DL (0.55-1.30) Estimat Glomerular Filtration Rate > 60 mL/min (>60) Glucose Level 124 MG/DL (74-106) Calcium Level 10.4 MG/DL (8.5-10.1) Total Bilirubin 0.6 MG/DL (0.2-1.0) Aspartate Amino Transf (AST/SGOT) 14 U/L (15-37) Alanine Aminotransferase (ALT/SGPT) 26 U/L (12-78) Alkaline Phosphatase 98 U/L (46-116) Total Creatine Kinase 80 U/L (26-308) Troponin I 0.013 ng/mL (0.000-0.056) Total Protein 8.6 G/DL (6.4-8.2) Albumin 4.4 G/DL (3.4-5.0) Globulin 4.2 g/dL Albumin/Globulin Ratio 1.0 (1.0-2.7) Lipase 224 U/L (73-393) Urine Color Yellow Urine Appearance Slightly cloudy Urine pH 6 (4.5-8.0) Urine Specific [place] 1.015 (1.005-1.035) Urine Protein 3+ (NEGATIVE) Urine Glucose (UA) Negative (NEGATIVE) Urine Ketones Negative (NEGATIVE) Urine Blood 4+ (NEGATIVE) Urine Nitrite Positive (NEGATIVE) Urine Bilirubin Negative (NEGATIVE) Urine Urobilinogen Normal MG/DL (0.0-1.0) Urine Leukocyte Esterase 3+ (NEGATIVE) Urine RBC 30-40 /HPF (0 - 2) Urine WBC 60-80 /HPF (0 - 2) Urine Squamous Epithelial Cells Occasional /LPF Urine Bacteria Moderate /HPF (NONE) EKG Diagnostic Results EP Interpretation: Dr. Lawrence Rate: normal - 79 bpm Rhythm: NSR ST Segments: no acute changes ASA given to the pt in ED: No Chest X-Ray Diagnostic Results Chest X-Ray Diagnostic Results : Chest X-Ray Ordered: Yes # of Views/Limited/Complete: 1 View Indication: Chest Pain EP Interpretation: Yes PA Xray: Interpretation reviewed, by supervising MD, and agrees with findings. Interpretation: no consolidation, no effusion, no pneumothorax, no acute cardiopulmonary disease Impression: No acute disease Electronically Signed by: Fidelina Hutchinson PA-C Last Vital Signs Date Time Temp Pulse Resp B/P (MAP) Pulse Ox O2 Delivery O2 Flow Rate FiO2 06/24/19 12:28 98.2 87 18 179/96 (123) 97 Room Air Disposition: HOME, SELF-CARE Condition: Stable Scripts Cefdinir (CEFDINIR) 300 Mg Capsule 300 MG PO BID for 10 Days, #20 CAP Prov: Fidelina Hutchinson 06/24/19 Phenazopyridine Hcl* (PYRIDIUM*) 100 Mg Tablet 100 MG ORAL THREE TIMES A DAY for 3 Days, #9 TAB Prov: Fidelina Hutchinson 06/24/19 Hydrocodone Bit/Acetaminophen 5-325* (NORCO 5-325*) 1 Each Tablet 1 TAB ORAL Q6H PRN for For Pain, #12 TAB 0 Refills Prov: Fidelina Hutchinson 06/24/19 Referrals: NON PHYSICIAN (PCP) Patient Instructions: Pyelonephritis, Adult, [id number] Additional Instructions: Take medications as directed. Follow up with a Primary Care Provider in 3-5 days, even if your symptoms have resolved. --Please review list of primary care clinics, if you do not already have a primary care provider Return sooner to ED if new symptoms occur, or current symptoms become worse. Do not drink alcohol, drive, or operate heavy machinery while taking [place] as this may cause drowsiness. - Please note that this Emergency Department Report was dictated using [email or web address] aide technology software, occasionally this can lead to erroneous entry secondary to interpretation by the dictation equipment. Fidelina Hutchinson Jun 24, 2019 12:46
[2019-06-24 12:51] LABS: BASOPHILS % (AUTO) 0.6 % (0.0-2.0); EOSINOPHILS % (AUTO) 0.9 % (0.0-3.0); HEMATOCRIT 45.7 % (37.0-47.0); HEMOGLOBIN 15.2 G/DL (12.0-16.0); LYMPHOCYTES % (AUTO) 22.4 % (20.0-45.0); MEAN CORPUSCULAR VOLUME 87 FL (80-99); MONOCYTES % (AUTO) 6.6 % (1.0-10.0); NEUTROPHILS % (AUTO) 69.6 % (45.0-75.0); PLATELET COUNT 417 K/UL (150-450); RED BLOOD COUNT 5.28 M/UL (4.20-5.40); RED CELL DISTRIBUTION WIDTH 11.7 % (11.6-14.8); WHITE BLOOD COUNT 13.8 K/UL (4.8-10.8)
[2019-06-24] MEDS ORDERED: Morphine Sulfate 4mg/ml Inj (IV USE ONLY) ONE (12:53)
[2019-06-24] MEDS ORDERED: Morphine Sulfate 4mg/ml Inj (IV USE ONLY) IVP ONE (13:00)
[2019-06-24 13:06] LABS: ANION GAP 9 mmol/L (5-15); BLOOD UREA NITROGEN 6 mg/dL (7-18); CALCIUM 10.4 MG/DL (8.5-10.1); CARBON DIOXIDE 30 MMOL/L (21-32); CHLORIDE 102 MMOL/L (98-107); CREATININE 0.9 MG/DL (0.55-1.30); POTASSIUM 3.4 MMOL/L (3.5-5.1); SODIUM 141 MMOL/L (136-145)
[2019-06-24 13:11] LABS: ALANINE AMINOTRANSFERASE 26 U/L (12-78); ALBUMIN 4.4 G/DL (3.4-5.0); ALKALINE PHOSPHATASE 98 U/L (46-116); ASPARTATE AMINO TRANSFERASE 14 U/L (15-37); BILIRUBIN,TOTAL 0.6 MG/DL (0.2-1.0); CREATINE KINASE 80 U/L (26-308)
--- NOTE | 2019-06-24 13:24 | NUR ---
ED Nurse Note: pt verbalized pain got better to 5/10 from 10 and BP went down to 156/84mmHg.
[2019-06-24 13:39] LABS: APPEARANCE,URINE SLIGHTLY CLOUDY; BILIRUBIN, URINE NEGATIVE (NEGATIVE); GLUCOSE, URINE (UA) NEGATIVE (NEGATIVE); KETONES,URINE NEGATIVE (NEGATIVE); LEUKOCYTE ESTERASE ,URINE 3+ (NEGATIVE); NITRITE,URINE POSITIVE (NEGATIVE); PH,URINE 6 (4.5-8.0); PROTEIN,URINE 3+ (NEGATIVE); UROBILINOGEN,URINE NORMAL MG/DL (0.0-1.0)
[2019-06-24 13:40] LABS: COLOR,URINE YELLOW
[2019-06-24] MEDS ORDERED: cefTRIAXone 1 GM in NS 55 ML IVPB ONE (14:15)
--- NOTE | 2019-06-24 15:09 | NUR ---
ED Nurse Note: ERMD at bedside for US.
[2019-06-24] MEDS ORDERED: CEFDINIR300 MG PO (15:18)
[2019-06-24] MEDS ORDERED: NORCO 5-325 TA1 EACH ORAL (15:18)
[2019-06-24] MEDS ORDERED: PHENAZOPYRIDIN100 MG ORAL (15:18)
[2019-06-24 15:29] VITALS: BP 162/78
[2019-06-24] MEDS ORDERED: Phenazopyridine 200mg tab ORAL ONE (15:30)
--- NOTE | 2019-06-24 15:30 | NUR ---
ED Nurse Note: Pt cleared by health care Provider for discharge. DC instructions/prescription was given and explained to pt and verbalized understanding of teachings. All medical deviecs such as ID band removed. Pt is AAO x4, ambulatory and left with all personal belongings.
--- NOTE | 2019-06-25 17:20 | Cardiology Report ---
APPROVED REPORT EKG Measurement Heart [id number] [place] [id number] Normal sinus rhythm Low voltage QRS Borderline ECG
== END 2019-06-24 15:30 | disposition home or self-care (01) ==
LOC: EMR 12:35
DX: N12 Tubulo-interstitial nephritis, not specified as acute or chronic (principal); E11.9 Type 2 diabetes mellitus without complications; I10 Essential (primary) hypertension; M79.7 Fibromyalgia; M32.9 Systemic lupus erythematosus, unspecified
CPT/HCPCS: 36415; 71045; 80053; 81003; 82550; 83690; 84484; 85025; 87086; 87181; 93005; 96365; 96375; 99284; J2270